=== PATIENT | male | born 1960 | race Hispanic/Latino ===

== ENCOUNTER → 2021-11-01 | Outpatient (CLI) | payer OTHER ==
[~2021-11-01] MED LIST: FENO67CA10 PO; FOLI-74 PO; IBUP-2070 PO; LISI20TA24 PO; MOME17SP4 NS; RANI300C PO; SIMV-43 PO; TIZA4CAP8 PO; TRAM50TA4 PO
== END | disposition home or self-care (01) ==
LOC: RAH 13:05
PROVIDERS: ATTEND Internal Medicine Cardiovascular Disease
DX: Z13.6 Encounter for screening for cardiovascular disorders (principal); I51.5 Myocardial degeneration; I10 Essential (primary) hypertension
CPT/HCPCS: 75571